=== PATIENT | female | born 1970 | race Caucasian/White ===

== ENCOUNTER 2017-07-13 07:41 | Emergency (ER) | payer OTHER ==
[2017-07-13 07:45] VITALS: TEMP 98.6
[2017-07-13] MEDS ORDERED: IBUPROFEN 600 MG TAB PO ONE (07:51)
--- NOTE | 2017-07-13 08:24 | EDPHY ---
HPI/HX/ROS/PE/MDM Narrative: CHIEF COMPLAINT: Left ankle and knee pain HPI: The patient is a 47 y/o female complaining of left ankle and knee pain secondary to mechanical fall 45 minutes ago. She had left ankle surgery 20 years ago. Today she admits to missing a step at her house and then rolling her ankle; she landed on her left knee. The left ankle pain is primarily located on the side. Denies other injuries, weakness, numbness, fever or other pertinent symptoms. REVIEW OF SYSTEMS: Aside from elements discussed in the HPI, a comprehensive 10-point review of systems was reviewed and is negative. PMH: Left ankle surgery 20 years ago, thymoma 8 years ago, cholecystectomy, tonsillectomy SOCIAL HISTORY: Works as a caregiver, lives in [place], [facility] PHYSICAL EXAM: General:Patient is alert, in no acute distress. Back: Normal to inspection. No tenderness to palpation. Skin: Normal color. No rash. Warm and dry. Extremities: Tenderness at left lateral malleolus. Left anterior knee tenderness with mild ecchymosis. Otherwise normal appearance. Full range of motion. Neuro: Oriented x3. Normal motor function. Normal sensory function. Portions of this note were transcribed by an ED scribe. I personally performed the history, physical exam, and medical decision making; and confirm the accuracy of the information in the transcribed note. ED Course: The patient is a 47 y/o female presenting with tenderness to her left lateral malleolus and anterior knee tenderness with mild ecchymosis, secondary to a mechanical fall 45 minutes ago. 0830: The patients x-rays are negative for osseous injuries 0832: Reassessed patient and discussed imaging findings. She will be referred for an outpatient follow up with an orthopedic surgeon if her symptoms do not improve in one week. Return precautions provided; patient is comfortable with this plan. MDM: Uncomplicated ankle sprain and knee contusion. I see no evidence for dislocation, tendon rupture or fracture. - Data Points Imaging Results: Imaging Impressions Ankle X-Ray 07/13/17 07:48 Impression: 1. Lateral ankle sprain. 2. Previous internal fixation plate distal shaft left fibula with removal of hardware and remodeling of underlying previous fracture. Knee X-Ray 07/13/17 07:48 Impression: 1. Minimal medial compartment knee joint space narrowing without secondary findings of osteoarthritis. 2. Mild lateral tilt of the patella without subluxation. 3. No acute osseous abnormality seen left knee. Imaging: I viewed and interpreted images myself Medications Given: Discontinued Medications Ibuprofen (Motrin) 600 mg PO EDNOW ONE Stop: 07/13/17 07:52 Last Admin: 07/13/17 07:55 Dose: 600 mg General Time Seen by Provider: 07/13/17 08:23 Initial Vital Signs: Initial Vital Signs Temperature (C) 37 C 07/13/17 07:42 Heart Rate 99 07/13/17 07:42 Respiratory Rate 20 07/13/17 07:42 Blood Pressure 136/120 H 07/13/17 07:42 O2 Sat (%) 98 07/13/17 07:42 O2 Delivery Mode Room Air Allergies/Adverse Reactions: Sulfa (Sulfonamide Antibiotics) Allergy (Verified 07/13/17 07:42) Home Medications: Medication Instructions Recorded Hydrocodone/APAP 5/325 [Florence 1 - 2 tab PO Q4H PRN #7 tab 07/13/17 5/325 (RX)] Departure - Departure Disposition: Home, Routine, Self-Care Clinical Impression: Left ankle sprain Qualifiers: Encounter type: initial encounter Involved ligament of ankle: unspecified ligament Qualified Code(s): S93.402A - Sprain of unspecified ligament of left ankle, initial encounter Knee contusion Qualifiers: Encounter type: initial encounter Laterality: left Qualified Code(s): S80.02XA - Contusion of left knee, initial encounter Condition: Good Instructions: Ankle Sprain (ED), Contusion in Adults (ED), Knee Pain (ED) Additional Instructions: Rest, ice, elevation. Take Florence as prescribed for sever pain. Follow up with an orthopedic surgeon within one week if pain persists. Return to the emergency department for worsening pain, swelling, numbness, weakness or other concerns. Wear splint for comfort, weight bear as tolerated. Referrals: WINNIE SCHWAB [Other] - As per Instructions Rico Leonard MD [Medical Doctor] - As per Instructions Prescriptions: Hydrocodone/APAP 5/325 [Florence 5/325 (RX)] 1 - 2 tab PO Q4H PRN #7 tab PRN Reason: Pain, Moderate Report Scribed for: Carlo Angulo Report Scribed by: Kay Asencio Date of Report: 07/13/17 Time of Report: 08:23
[2017-07-13 08:53] VITALS: BP 157/92; PULSE 87; RESP 14; O2SAT 95
== END 2017-07-13 08:52 | disposition home or self-care (01) ==
DX: S93.402A Sprain of unspecified ligament of left ankle, initial encounter (principal); S80.02XA Contusion of left knee, initial encounter; W18.39XA Other fall on same level, initial encounter; Y92.009 Unspecified place in unspecified non-institutional (private) residence as the place of occurrence of the external cause
CPT/HCPCS: L4350